=== PATIENT | male | born 1975 | race Caucasian/White ===

== ENCOUNTER 2017-09-13 06:23 | Inpatient (IN) | payer OTHER ==
[2017-09-13] MEDS ORDERED: LR 1,000 ML IV (06:45)
[2017-09-13] MEDS: CelecoXIB (CeleBREX) 100 MG CAP PO (07:37)
[2017-09-13] MEDS: GABAPENTIN 300 MG CAP PO ×2 (07:37→19:42)
[2017-09-13] MEDS ORDERED: ROCURONIUM BROMIDE 50 MG/5 ML VIAL As Ordered ×4 (07:46→16:08)
[2017-09-13] MEDS ORDERED: LIDOCAINE 2% INJ 100 MG/5 ML SDV (FOR ANES.) As Ordered (07:46)
[2017-09-13] MEDS ORDERED: dexameTHASONE 4 MG/ML 1ML VIAL (J1100) As Ordered (07:46)
[2017-09-13] MEDS ORDERED: PROPOFOL 200 MG/20 ML VIAL As Ordered ×2 (07:46→14:45)
[2017-09-13] MEDS ORDERED: fentaNYL 250 MCG/5 ML INJECTION (J3010) As Ordered (07:47)
[2017-09-13] MEDS ORDERED: MIDAZOLAM INJ 2 MG/2 ML VIAL (J2250) As Ordered (07:47)
[2017-09-13] MEDS: BUPIVACAINE/EPIN 0.5% 30 ML VIAL As Ordered (09:28)
[2017-09-13] MEDS ORDERED: SEVOFLURANE INHAL SOLN 250 ML BTL As Ordered (10:20)
[2017-09-13] MEDS ORDERED: NEOSTIGMINE 10 MG/10 ML VIAL (J2710) As Ordered (10:20)
[2017-09-13] MEDS ORDERED: HYDROmorphone HCL 2 MG/ML 1ML VIAL (J1170) As Ordered (10:20)
[2017-09-13] MEDS ORDERED: GLYCOPYRROLATE INJ 0.2 MG/ML 2 ML VIAL As Ordered (10:20)
[2017-09-13] MEDS: THROMBIN SOLN 20,000 UNITS KIT As Ordered (12:18)
[2017-09-13] MEDS: BACITRACIN PWD 50,000 UNITS VIAL As Ordered (12:19)
[2017-09-13] MEDS: VANCOMYCIN HCL 500 MG/10 ML VIAL (J3370) As Ordered (12:22)
[2017-09-13] MEDS: ceFAZolin 2 GM/D5W 50 ML IV BAG (J0690 PER 500MG) As Ordered (13:10)
[2017-09-13] MEDS: BUPIVACAINE LIPOSOME/PF 1.3% 20 ML VIAL (13.3MG/ML)(EXPAREL) As Ordered (14:30)
[2017-09-13] MEDS: BUPIVACAINE HCL 0.5% 10 ML VIAL As Ordered (14:31)
[2017-09-13] MEDS ORDERED: NORCO, ANEXSIA 5/325MG TABLET (HYDROcodone/ACETAMINOPHEN) As Ordered (15:11)
[2017-09-13] MEDS ORDERED: ONDANSETRON 4MG/2ML VIAL (J2405) IV (15:15)
[2017-09-13] MEDS ORDERED: fentaNYL 100 MCG/2 ML INJECTION (J3010) IV (15:15)
[2017-09-13] MEDS: NORCO, ANEXSIA 5/325MG TABLET (HYDROcodone/ACETAMINOPHEN) PO ×2 (15:24→19:43)
[2017-09-13] MEDS: HYDROMORPHONE HCL 0.5 MG/ 0.5 ML SYRINGE (J1170 PER 1) IV (15:26)
[2017-09-13] MEDS ORDERED: NORCO, ANEXSIA 5/325MG TABLET (HYDROcodone/ACETAMINOPHEN) PO (15:30)
[2017-09-13] MEDS ORDERED: HYDROMORPHONE HCL 0.5 MG/ 0.5 ML SYRINGE (J1170 PER 1) IV (15:30)
[2017-09-13] MEDS ORDERED: NORTRIPTYLINE 10 MG CAP PO (15:30)
[2017-09-13] MEDS: D5W/LR 1,000 ML IV (16:00)
[2017-09-13] MEDS ORDERED: ePHEDrine SULFATE 25 MG/5 ML(5MG/ML) SYRINGE As Ordered (16:21)
[2017-09-13] MEDS: LR 1,000 ML IV (17:11)
[2017-09-14] MEDS: CYCLOBENZAPRINE 10 MG TAB PO (00:40)
[2017-09-14] MEDS: NORCO, ANEXSIA 5/325MG TABLET (HYDROcodone/ACETAMINOPHEN) PO ×3 (00:40→10:00)
[2017-09-14] MEDS: D5W/LR 1,000 ML IV (01:19)
[2017-09-14] MEDS: MOM 30ML SUSPENSION UDC PO (08:25)
[2017-09-14] MEDS: ASPIRIN 81 MG ENTERIC TAB PO (08:25)
[2017-09-14] MEDS: GABAPENTIN 300 MG CAP PO (08:25)
[2017-09-14] MEDS: METAMUCIL (PSYLLIUM) PACKET PO (08:25)
== END 2017-09-14 10:11 | disposition home or self-care (01) | DRG 455 ==
LOC: M OR 06:23 → M MS5PR 16:00
PROC: 0SG0071 Fusion of Lumbar Vertebral Joint with Autologous Tissue Substitute, Posterior Approach, Posterior Column, Open Approach (ICD-10-PCS; principal; 2017-09-13 08:27)
PROC: 0SG00AJ Fusion of Lumbar Vertebral Joint with Interbody Fusion Device, Posterior Approach, Anterior Column, Open Approach (ICD-10-PCS; 2017-09-13 08:27)
PROC: 0QB30ZZ Excision of Left Pelvic Bone, Open Approach (ICD-10-PCS; 2017-09-13 08:27)
DX: M43.06 Spondylolysis, lumbar region (principal)

== ENCOUNTER → 2018-08-14 | Outpatient (REF) ==
[~2018-08-14] MED LIST: ADVI200T PO; CYCL10TA PO
--- NOTE | 2018-08-14 12:36 | REP ---
LEFT SHOULDER, THREE VIEWS: Three views of the left shoulder performed. No acute fracture or dislocation is seen. Acromioclavicular joint is mildly widened. This could be due to prior excision of distal clavicle or could be due to acromioclavicular joint separation. Two well defined rounded lucencies in the inferior bony glenoid may represent postsurgical changes from placement of surgical anchors or it could represent mild subchondral cystic change. I see no other significant findings. Electronically Signed by Mian Huang MD 08/14/2018 04:34 P
== END ==
LOC: M SMT 09:41
PROVIDERS: ATTEND Internal Medicine
DX: M51.36 Other intervertebral disc degeneration, lumbar region (principal)

== ENCOUNTER → 2021-05-04 | Outpatient (CLI) | payer OTHER ==
[~2021-05-04] MED LIST changes: +CYCL-707 PO; -CYCL10TA PO
== END ==
LOC: M LABSMTC 09:52
PROVIDERS: ATTEND Anesthesiology
DX: Z01.812 Encounter for preprocedural laboratory examination (principal); Z20.822 Contact with and (suspected) exposure to COVID-19

== ENCOUNTER 2021-05-09 09:41 | Day surgery (SDC) | payer OTHER ==
[~2021-05-09] VITALS: Ht 175.3 cm; Wt 91.2 kg
[~2021-05-09 09:41] MED LIST changes: +NS 1,000 ML IV ONE
[2021-05-09] MEDS ORDERED: LIDOCAINE 2% 100MG/5ML SDV (FOR ANES.) As Ordered ONE (11:15)
[2021-05-09] MEDS ORDERED: propofoL 200 MG/20 ML VIAL As Ordered ONE ×2 (11:16→11:22)
[2021-05-09 12:13] VITALS: BP 135/87
== END 2021-05-09 12:21 | disposition home or self-care (01) ==
LOC: M OPP 09:41
PROVIDERS: ATTEND Internal Medicine Gastroenterology
DX: Z12.11 Encounter for screening for malignant neoplasm of colon (principal); K64.0 First degree hemorrhoids; Z88.5 Allergy status to narcotic agent; Z88.8 Allergy status to other drugs, medicaments and biological substances; Z87.891 Personal history of nicotine dependence